=== PATIENT | female | born 1945 | race Caucasian/White ===

== ENCOUNTER → 2016-07-30 | Outpatient (CLI) | payer MEDICARE ==
[2016-07-30 11:14] LABS: ALBUMIN 3.4 GM/DL (3.2-5.2); ALKALINE PHOSPHATASE 78 U/L (45-117); ALT/SGPT 29 U/L (12-78); ANION GAP 10 MEQ/L (8-16); AST/SGOT 26 U/L (15-37); BILIRUBIN,TOTAL 0.4 MG/DL (0.2-1.0); BLOOD UREA NITROGEN 19 MG/DL (7-18); CALCIUM LEVEL 8.8 MG/DL (8.8-10.2); CARBON DIOXIDE LEVEL 28 MEQ/L (21-32); CHLORIDE LEVEL 106 MEQ/L (98-107); CHOLESTEROL LEVEL 132 MG/DL (<200); CREATININE FOR GFR 0.86 MG/DL (0.55-1.02); FREE T4 0.79 NG/DL (0.76-1.46); GLOMERULAR FILTRATION RATE > 60.0 (>39); GLUCOSE, FASTING 94 MG/DL (83-110); POTASSIUM SERUM 4.2 MEQ/L (3.5-5.1); SODIUM LEVEL 144 MEQ/L (136-145); TOTAL PROTEIN 6.5 GM/DL (6.4-8.2); TRIGLYCERIDES LEVEL 71 MG/DL (<150)
== END ==
LOC: M LAB 09:38
PROVIDERS: ATTEND Family Medicine
DX: E04.2 Nontoxic multinodular goiter (principal); I10 Essential (primary) hypertension

== ENCOUNTER → 2016-09-29 | Outpatient (CLI) | payer MEDICARE ==
--- NOTE | 2016-09-28 07:52 | ED PDOC ---
Provider Note [facility] Name: Brandei Bahena : 1945 Sex: F Age: 71 yrs Nurse Note: HERE TODAY TO SCHEDULE A COLONOSCOPY. PATIENT STATES LAST ONE WAS 11 YEARS AGO AND THERE WAS 1 POLYP THAT WAS BENIGN. PATIENT STATES SHE GETS CONSTIPATED ALOT BUT IT IS RELIEVED BY OTC STOOL SOFTENERS LIKE DOCUSATE. PATIENT STATES A MATERNAL UNCLE AND MATERNAL AUNT HAD COLON CANCER AGE UNKNOWN. 2 MATERNAL UNCLES HAD PANCREATIC CANCER AND LUNG CANCER . Does the patient currently smoke? . (Smoking Hx) Patient was referred by Wilberto Sheppard M.D.. Subjective CC: Patient presents for colon cancer screening. HPI: Colorectal cancer screening, but denies appetite change, weight loss, colitis, colon cancer, colon polyps, constipation, diarrhea, diverticulitis, diverticulosis, family history of colon cancer, hemorrhoids and rectal bleeding. AllPatient presents for consult regarding to discuss colonoscopy. She had a previous colonoscopy about 11 years ago for complaints of pressure symptoms with bowel movements. She was found to have a polyp than that was removed. I could not find the pathology results in the EMR. She reports no abdominal complaints. She has intermittent constipation. Denies any bleeding with bowel movements. She has a maternal aunt and uncle who were diagnosed with colon cancer. Current Meds Prior to Visit: Lisinopril 1 once a day, Sertraline HCL 1 by mouth every day, Atorvastatin Calcium 1 by mouth every day, Aspirin 1 by mouth every day Allergies: Iodine - Blotches, Bandaids - Red Itch, Latex - Itching PMH: Problem List: Essential hypertension Medical Problems: Hypertension High Cholesterol Anxiety Depression Thyroid Disease Heart Disease Chronic Obstructive Pulmonary Disease (COPD) Surgical Hx: Removal of Gallbladder, Cyst Removed From Ovary Colonoscopy - 2005 Anesthesia Complications: None Reviewed and updated. FH: Father: due to COPD. Mother: due to Hypertension; Stroke; Heart Disease. Brother 1: Hypertension, Heart Disease. Sister 1: Hypertension, Heart Disease. Reviewed and updated. SH: Personal Habits: Smoking: Patient is a former smoker - 2 PPD FOR 36 YEARS QUIT 1997.Alcohol: Denies alcohol use.Drug Use: Denies Drug Use. Reviewed and updated. ROS: Const: Denies chills, fatigue, fever, weight gain and weight loss. Eyes: Denies blurred vision and double vision. ENMT: Denies ear symptoms. Denies hoarseness. CV: Denies chest pain and palpitations. Resp: Denies chronic cough, dyspnea and wheezing. GI: Denies rectal bleeding, family history of colon cancer, constipation, diarrhea, dysphagia, heartburn and jaundice. : Denies dysuria, frequency, hematuria and nocturia. Musculo: Denies arthralgias, back pain and thrombophlebitis. Skin: Denies rash. Neuro: Denies headache, stroke and transient ischemic attack. Psych: Denies anxiety and depression. Endocrine: Denies thyroid disease. 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 Allergy/Immuno: Denies radiocontrast media reaction and rubber allergy. Reviewed and updated. Objective BP: 178/92 Ht: 61" 5'1" Wt: 167lb 6oz Wt [id number] BMI: 31.6 IBW: 105 Exam: Const: No signs of acute distress present. Head/Face: Normocephalic. No lesions present on inspection. Eyes: Conjunctivae pink and moist. No icterus of the sclerae bilaterally. ENMT: External nose exhibits no lesions. Lips: No lesions. Resp: Respiration rate is normal. No use of accessory muscles noted. Diaphragmatic excursion is normal. No wheezing or stridor. Chest expansion is symmetrical. Clear to auscultation bilaterally. Chest is normal to inspection and palpation. CV: Rate is regular. Rhythm is regular. No ectopic beats. Extremities: Peripheral circulation is normal with no evidence of clubbing or cyanosis. No edema of the lower limbs bilaterally. No varicosities noted. Abdomen: No bulging. The abdomen is nondistended, moderately obese and moderately rounded. Umbilicus is normal. No visible herniations. Skin is normal. Wounds are well-healed. Abdominal incision: located at the right subcostal incision. Positive bowel sounds in all quadrants. No bruits. Normal to percussion. Abdomen is soft, nontender, and nondistended without guarding, rigidity or rebound tenderness. No abdominal masses palpable. No palpable hernias. Perineum/Anus/Rectum: Exam deferred until colonoscopy. Skin: Skin warm and dry with no evidence of unusual rashes or suspicious lesions. Hair appears normal. Neuro: Oriented to person, place, situation and time. Data Review: 08/03/16 - Ref Shannon Sheppard Assessment #1: Hx Z12.11 Encounter for screening for malignant neoplasm of colon Care Plan: Comments : 1. Discussed with patient the rationale for colon cancer screening as well as the different options for screening. Patient is average risk for colon cancer which is a risk up to 7% lifetime of developing colonic malignancy. Discussed risk factors for colon cancer 2. Discussed bowel prep. 3.Discussed risks and benefits of colonoscopy including risks of bleeding and perforation. Patient's questions and concerns addressed at this point. Patient has agreed to proceed. CRISTINO SPENCE MD September 28, 2016 07:52
[~2016-09-29] VITALS: Ht 154.9 cm; Wt 73.5 kg
[~2016-09-29] MED LIST: ASPI81TA21 PO; ATOR1TAB21 PO; LISI-538 PO; PROPOFOL 200 MG/20 ML VIAL As Ordered ONE; SERT50TA PO
[2016-09-29] MEDS: NS 1,000 ML IV SCH ×2 (07:07→07:08)
--- NOTE | 2016-09-29 07:52 | ROOR ---
Patient Name: Brandie Bahena Procedure Date: 09/29/2016 7:29 AM Date of : 1945 Age: 71 Room: [facility] Gender: Female Note Status: Finalized Procedure: Colonoscopy Indications: Screening for colorectal malignant neoplasm Providers: Mitchell Webb MD Referring MD: Wilberto Sheppard MD Requesting Provider: Medicines: Monitored Anesthesia Care Complications: No immediate complications. Procedure: Pre-Anesthesia Assessment: - Prior to the procedure, a History and Physical was performed, and patient medications and allergies were reviewed. The patient is competent. The risks and benefits of the procedure and the sedation options and risks were discussed with the patient. All questions were answered and informed consent was obtained. Patient identification and proposed procedure were verified by the physician, the nurse and the anesthesiologist in the endoscopy suite. Mental Status Examination: alert and oriented. Airway Examination: normal oropharyngeal airway and neck mobility. Respiratory Examination: clear to auscultation. CV Examination: normal. Prophylactic Antibiotics: The patient does not require prophylactic antibiotics. Prior Anticoagulants: The patient has taken aspirin, last dose was day of procedure. ASA Grade Assessment: II - A patient with mild systemic disease. After reviewing the risks and benefits, the patient was deemed in satisfactory condition to undergo the procedure. The anesthesia plan was to use monitored anesthesia care (MAC). Immediately prior to administration of medications, the patient was re-assessed for adequacy to receive sedatives. The heart rate, respiratory rate, oxygen saturations, blood pressure, adequacy of pulmonary ventilation, and response to care were monitored throughout the procedure. The physical status of the patient was re-assessed after the procedure. The Colonoscope was introduced through the anus and advanced to the cecum, identified by appendiceal orifice and ileocecal valve. The colonoscopy was performed without difficulty. The patient tolerated the procedure well. The quality of the bowel preparation was excellent. Findings: The perianal exam findings include non-thrombosed external hemorrhoids. The colon (entire examined portion) appeared normal. No additional abnormalities were found on retroflexion. Impression: - Non-thrombosed external hemorrhoids found on perianal exam. - The entire examined colon is normal. - No specimens collected. Recommendation: - Discharge patient to home (ambulatory). - Repeat colonoscopy in 10 years for screening purposes. Mitchell Webb MD Mitchell Webb MD 09/29/2016 7:52:20 AM This report has been signed electronically. Number of Addenda: 0 Note Initiated On: 09/29/2016 7:29 AM Estimated Blood Loss: Estimated blood loss: none.
[2016-09-29 08:10] VITALS: BP 130/64
== END | disposition home or self-care (01) ==
LOC: M OPP 06:39
PROVIDERS: ATTEND Surgery
DX: Z12.11 Encounter for screening for malignant neoplasm of colon (principal); K64.4 Residual hemorrhoidal skin tags; Z86.010 Personal history of colon polyps; I10 Essential (primary) hypertension; E78.5 Hyperlipidemia, unspecified; E04.1 Nontoxic single thyroid nodule; K44.9 Diaphragmatic hernia without obstruction or gangrene; R12 Heartburn; F41.9 Anxiety disorder, unspecified; F32.9 Major depressive disorder, single episode, unspecified; Z78.0 Asymptomatic menopausal state; J44.9 Chronic obstructive pulmonary disease, unspecified; I25.10 Atherosclerotic heart disease of native coronary artery without angina pectoris; R06.83 Snoring; R32 Unspecified urinary incontinence; Z87.891 Personal history of nicotine dependence; Z79.82 Long term (current) use of aspirin; Z79.899 Other long term (current) drug therapy; Z88.3 Allergy status to other anti-infective agents; Z91.048 Other nonmedicinal substance allergy status; Z91.040 Latex allergy status

== ENCOUNTER → 2018-08-17 | Outpatient (CLI) | payer MEDICARE ==
[~2018-08-17] MED LIST changes: -PROPOFOL 200 MG/20 ML VIAL As Ordered ONE; +SERT-141 PO; -SERT50TA PO
[2018-08-17 11:49] LABS: BASO # 0.1 10^3/uL (0.0-0.2); BASO % 1.3 % (0.0-1.0); EOS # 0.3 10^3/uL (0.0-0.50); EOS % 5.7 % (0.0-3.0); HEMATOCRIT 41.4 % (36.0-47.0); HEMOGLOBIN 13.7 g/dl (12.0-15.5); LYMPH # 1.8 10^3/uL (1.5-4.5); LYMPH % 33.7 % (24.0-44.0); MEAN CORPUSCULAR HEMOGLOBIN 31.6 pg (27.0-33.0); MEAN CORPUSCULAR HGB CONC 33.1 g/dl (32.0-36.5); MEAN CORPUSCULAR VOLUME 95.4 fl (80.0-96.0); MONO # 0.4 10^3/uL (0.0-0.8); MONO % 6.4 % (0.0-5.0); NEUTROPHILS # 2.9 10^3/uL (1.8-7.7); NEUTROPHILS % 52.7 % (36.0-66.0); PLATELET COUNT, AUTOMATED 256 10^3/uL (150-450); RED BLOOD COUNT 4.34 10^6/uL (4.00-5.40); WHITE BLOOD COUNT 5.4 10^3/uL (4.0-10.0)
[2018-08-17 12:27] LABS: ALBUMIN 3.6 GM/DL (3.2-5.2); ALT/SGPT 26 U/L (12-78); BILIRUBIN,TOTAL 0.4 MG/DL (0.2-1.0); BLOOD UREA NITROGEN 9 MG/DL (7-18); CALCIUM LEVEL 8.2 MG/DL (8.8-10.2); CARBON DIOXIDE LEVEL 31 MEQ/L (21-32); CHLORIDE LEVEL 110 MEQ/L (98-107); CHOLESTEROL LEVEL 149 MG/DL (<200); CHOLESTEROL RISK RATIO 2.292 (<5); CREATININE FOR GFR 0.83 MG/DL (0.55-1.30); FREE T3 2.6 PG/ML (2.2-4.0); FREE T4 0.83 NG/DL (0.76-1.46); GLOMERULAR FILTRATION RATE > 60.0 (>39); GLUCOSE, FASTING 88 MG/DL (70-100); HDL CHOLESTEROL 65 MG/DL (>40); LDL CHOLESTEROL 66 MG/DL (<100); NON-HDL-C 84 MG/DL; POTASSIUM SERUM 4.3 MEQ/L (3.5-5.1); SODIUM LEVEL 143 MEQ/L (136-145); TOTAL PROTEIN 6.4 GM/DL (6.4-8.2); TRIGLYCERIDES LEVEL 89 MG/DL (<150)
[2018-08-17 12:30] LABS: TOTAL 25(OH) VITAMIN D 16.7 NG/ML (30.0-100.0)
== END ==
LOC: M LAB 10:54
PROVIDERS: ATTEND Family Medicine
DX: E04.2 Nontoxic multinodular goiter (principal); I10 Essential (primary) hypertension; Z79.899 Other long term (current) drug therapy

== ENCOUNTER → 2019-03-14 | Outpatient (CLI) | payer MEDICARE ==
[2019-03-14 12:30] LABS: HEMATOCRIT 42.8 % (36.0-47.0); HEMOGLOBIN 13.8 g/dl (12.0-15.5); MEAN CORPUSCULAR HEMOGLOBIN 31.9 pg (27.0-33.0); MEAN CORPUSCULAR HGB CONC 32.2 g/dl (32.0-36.5); MEAN CORPUSCULAR VOLUME 99.1 fl (80.0-96.0); PLATELET COUNT, AUTOMATED 279 10^3/uL (150-450); RED BLOOD COUNT 4.32 10^6/uL (4.00-5.40); WHITE BLOOD COUNT 4.9 10^3/uL (4.0-10.0)
[2019-03-14 13:06] LABS: ALBUMIN 3.6 GM/DL (3.2-5.2); ALT/SGPT 28 U/L (12-78); BILIRUBIN,TOTAL 0.6 MG/DL (0.2-1.0); BLOOD UREA NITROGEN 16 MG/DL (7-18); CALCIUM LEVEL 8.9 MG/DL (8.8-10.2); CARBON DIOXIDE LEVEL 30 MEQ/L (21-32); CHLORIDE LEVEL 108 MEQ/L (98-107); CHOLESTEROL LEVEL 153 MG/DL (<200); CHOLESTEROL RISK RATIO 1.987 (<5); CREATININE FOR GFR 0.89 MG/DL (0.55-1.30); GLOMERULAR FILTRATION RATE > 60.0 (>39); GLUCOSE, FASTING 82 MG/DL (70-100); HDL CHOLESTEROL 77 MG/DL (>40); LDL CHOLESTEROL 61 MG/DL (<100); NON-HDL-C 76 MG/DL; POTASSIUM SERUM 4.3 MEQ/L (3.5-5.1); SODIUM LEVEL 143 MEQ/L (136-145); TOTAL PROTEIN 6.6 GM/DL (6.4-8.2); TRIGLYCERIDES LEVEL 77 MG/DL (<150)
[2019-03-14 13:29] LABS: TOTAL 25(OH) VITAMIN D 38.8 NG/ML (30.0-100.0)
== END ==
LOC: M LAB 10:53
PROVIDERS: ATTEND Family Medicine
DX: E55.9 Vitamin D deficiency, unspecified (principal); E78.00 Pure hypercholesterolemia, unspecified

== ENCOUNTER → 2019-06-02 | Outpatient (CLI) | payer MEDICARE ==
[2019-06-02 13:02] LABS: FREE T3 2.5 PG/ML (2.2-4.0); FREE T4 0.88 NG/DL (0.76-1.46); THYROID STIMULATING HORMONE 1.79 uIU/ML (0.358-3.740)
== END ==
LOC: M LAB 12:10
PROVIDERS: ATTEND Family Medicine
DX: E04.1 Nontoxic single thyroid nodule (principal)

== ENCOUNTER → 2020-04-29 | Outpatient (REF) | payer MEDICARE | LOC: M LAB REF 16:07 | PROVIDERS: ATTEND Surgery | DX: L72.0 Epidermal cyst (principal) ==

== ENCOUNTER → 2020-10-16 | Outpatient (REF) | payer MEDICARE ==
[~2020-10-16] MED LIST changes: -LISI-538 PO; +LISI20TA33 PO
[2020-10-16 15:59] LABS: HEMATOCRIT 41.4 % (36.0-47.0); HEMOGLOBIN 13.4 g/dl (12.0-15.5); MEAN CORPUSCULAR HEMOGLOBIN 31.6 pg (27.0-33.0); MEAN CORPUSCULAR HGB CONC 32.4 g/dl (32.0-36.5); MEAN CORPUSCULAR VOLUME 97.6 fl (80.0-96.0); PLATELET COUNT, AUTOMATED 287 10^3/uL (150-450); RED BLOOD COUNT 4.24 10^6/uL (4.00-5.40); WHITE BLOOD COUNT 5.8 10^3/uL (4.0-10.0)
[2020-10-16 16:16] LABS: ALBUMIN 3.8 GM/DL (3.2-5.2); ALT/SGPT 33 U/L (12-78); BILIRUBIN,TOTAL 0.5 MG/DL (0.2-1.0); BLOOD UREA NITROGEN 14 MG/DL (7-18); CALCIUM LEVEL 8.6 MG/DL (8.8-10.2); CARBON DIOXIDE LEVEL 30 MEQ/L (21-32); CHLORIDE LEVEL 109 MEQ/L (98-107); CHOLESTEROL LEVEL 135 MG/DL (<200); CHOLESTEROL RISK RATIO 2.213 (<5); CREATININE FOR GFR 0.82 MG/DL (0.55-1.30); FREE T3 2.5 PG/ML (2.2-4.0); FREE T4 0.89 NG/DL (0.76-1.46); GLOMERULAR FILTRATION RATE > 60.0 (>39); GLUCOSE, FASTING 86 MG/DL (70-100); HDL CHOLESTEROL 61 MG/DL (>40); LDL CHOLESTEROL 56 MG/DL (<100); NON-HDL-C 74 MG/DL; POTASSIUM SERUM 4.6 MEQ/L (3.5-5.1); SODIUM LEVEL 142 MEQ/L (136-145); TOTAL PROTEIN 6.6 GM/DL (6.4-8.2); TRIGLYCERIDES LEVEL 89 MG/DL (<150)
[2020-10-16 16:18] LABS: TOTAL 25(OH) VITAMIN D 34.8 NG/ML (30.0-100.0)
== END ==
LOC: M PLALAB 14:52
PROVIDERS: ATTEND Family Medicine
DX: E04.2 Nontoxic multinodular goiter (principal); I10 Essential (primary) hypertension

== ENCOUNTER → 2021-01-21 | Outpatient (CLI) | payer MEDICARE ==
--- NOTE | 2021-01-21 13:40 | PFTRPT ---
Site: [facility], [address] [place], [address] ID: [id number] Name: JEAN CLAUDE BLACKWELL Visit Date: 01/21/2021 Second ID: [id number] Referring Doctor: MD Sheppard Jon Reviewing Doctor: Didier Snyder MD Registered Dental Assistant: Yuliya Agosto RRT Age: 75 : 1945 Sex: Female Race: Height: 61.00 Inches Weight: 166.00 Lbs BSA: 1.75 Order IDs: [id number] Requested Test(s): <RESP-PFT.PFT B/A> Diagnosis: R06.02 of albuterol for post bronchodilator. Review Status: Not Reviewed Pre-Bronch Post-Bronch Pred Actual %Pred Actual %Chng SPIROMETRY FVC (L) 2.43 1.61 66 1.61 FEV1 (L) 1.81 1.40 77 1.29 -8 FEV1/FVC (%) 75 87 115 80 -7 FEF 25% (L/sec) 4.29 3.05 71 4.67 53 FEF 50% (L/sec) 3.18 3.04 95 2.32 -23 FEF 75% (L/sec) 0.85 0.79 92 0.32 -59 FEF 25-75% (L/sec) 1.46 2.04 139 1.20 -41 FEF Max (L/sec) 4.74 4.62 97 4.89 5 FIVC (L) 1.77 1.90 7 FIF 50% (L/sec) 3.14 3.05 97 4.24 38 FIF Max (L/sec) 3.15 4.24 34 MVV (L/min) 76 82 107 Expiratory Time (sec) 7.30 7.00 -4 Back Extrap Vol (L) 0.12 0.09 -22 Time To FEFmax (sec) 0.175 0.091 -48 LUNG VOLUMES SVC (L) 2.45 2.97 121 IC (L) 1.97 1.78 90 ERV (L) 0.48 0.90 187 TGV (L) 2.63 2.92 111 RV (Pleth) (L) 2.15 1.74 80 TLC (Pleth) (L) 4.60 4.70 102 RV/TLC (Pleth) (%) 46 37 80 DIFFUSION DLCOunc (ml/min/mmHg) 18.67 13.92 74 DL/VA (ml/min/mmHg/L) 4.06 5.34 131 VA (L) 4.60 2.61 56 BHT (sec) 10.35 IVC (L) 1.25 TLC (SB) (L) 2.76 AIRWAYS RESISTANCE Raw (cmH2O/L/s) 1.86 1.94 104 Gaw (L/s/cmH2O) 1.03 0.52 50 sRaw (cmH2O*s) 4.76 5.70 119 sGaw (1/cmH2O*s) 0.20 0.18 90
== END ==
LOC: M CARPUL 12:50
PROVIDERS: ATTEND Family Medicine
DX: R06.02 Shortness of breath (principal)

== ENCOUNTER → 2021-12-08 | Outpatient (CLI) | payer MEDICARE ==
[2021-12-08 15:29] LABS: HEMATOCRIT 44.2 % (36.0-47.0); HEMOGLOBIN 14.2 g/dl (12.0-15.5); MEAN CORPUSCULAR HEMOGLOBIN 31.6 pg (27.0-33.0); MEAN CORPUSCULAR HGB CONC 32.1 g/dl (32.0-36.5); MEAN CORPUSCULAR VOLUME 98.2 fl (80.0-96.0); PLATELET COUNT, AUTOMATED 296 10^3/uL (150-450); WHITE BLOOD COUNT 8.7 10^3/uL (4.0-10.0)
[2021-12-08 15:52] LABS: ALBUMIN 3.7 GM/DL (3.2-5.2); ALT/SGPT 40 U/L (12-78); BILIRUBIN,TOTAL 0.6 MG/DL (0.2-1.0); BLOOD UREA NITROGEN 16 MG/DL (7-18); CARBON DIOXIDE LEVEL 28 MEQ/L (21-32); CHLORIDE LEVEL 110 MEQ/L (98-107); CHOLESTEROL LEVEL 145 MG/DL (<200); CHOLESTEROL RISK RATIO 2.132 (<5); CREATININE FOR GFR 0.87 MG/DL (0.55-1.30); GLOMERULAR FILTRATION RATE > 60.0 (>39); GLUCOSE, FASTING 102 MG/DL (70-100); HDL CHOLESTEROL 68 MG/DL (>40); LDL CHOLESTEROL 58 MG/DL (<100); NON-HDL-C 77 MG/DL; POTASSIUM SERUM 4.4 MEQ/L (3.5-5.1); SODIUM LEVEL 144 MEQ/L (136-145); TOTAL PROTEIN 6.6 GM/DL (6.4-8.2); TRIGLYCERIDES LEVEL 95 MG/DL (<150)
[2021-12-08 16:29] LABS: TOTAL 25(OH) VITAMIN D 38.3 NG/ML (30.0-100.0)
== END ==
LOC: M PLALAB 12:45
PROVIDERS: ATTEND Family Medicine
DX: E55.9 Vitamin D deficiency, unspecified (principal); E07.9 Disorder of thyroid, unspecified; E78.00 Pure hypercholesterolemia, unspecified

== ENCOUNTER → 2021-12-28 | Outpatient (CLI) | payer MEDICARE ==
[~2021-12-28] MED LIST changes: +ECOT81TA5 PO; +EQL50TAB2 PO; +LOSA50TA28 PO; +NOXI1TAB PO
== END ==
LOC: M LABSMTC 11:28
PROVIDERS: ATTEND Anesthesiology
DX: Z01.818 Encounter for other preprocedural examination (principal); Z11.52 Encounter for screening for COVID-19

== ENCOUNTER 2021-12-30 10:55 | Day surgery (SDC) | payer MEDICARE ==
[~2021-12-30] VITALS: Ht 154.9 cm; Wt 75.7 kg
[~2021-12-30 10:55] MED LIST changes: +BSS IRRIG/VANCO(10MG)/TOBRA(5MG)/EPINEPH(1:1000-0.5CC)500ML BAG-ORONLY IR ONE; +CEFUROXIME 1MG/0.1ML INTRACAMERAL INJ As Ordered ONE; +LIDOCAINE 1% SDV 5ML VIAL As Ordered ONE; +LIDOCAINE 3.5 % 1ML OPHTH TOPICAL GEL OU ONE; +OFLOXACIN 0.3 % (OCUFLOX) OPTH SOL 5ML OD ONE; +PHENYLEPHRINE HCL 10 % OPHTH. SOL 5ML OD PRN
[2021-12-30] MEDS ORDERED: fentaNYL 100 MCG/2 ML INJECTION As Ordered ONE (11:29)
[2021-12-30] MEDS ORDERED: MIDAZOLAM INJ 2MG/2ML VIAL (J2250 PER 1MG) As Ordered ONE (11:29)
[2021-12-30] MEDS: TROPICAMIDE 1% OPHTH SOLN 2ML OD SCH ×3 (11:31→11:44)
[2021-12-30] MEDS: PHENYLEPHRINE 2.5% OPHTH SOL 2ML OD SCH ×3 (11:34→11:50)
[2021-12-30] MEDS: CYCLOPENTOLATE 1% OPHTH SOLN 2 ML BTL OD SCH ×3 (11:34→11:50)
[2021-12-30] MEDS ORDERED: ONDANSETRON 4MG TAB PO PRN (13:35)
[2021-12-30] MEDS ORDERED: ACETAMINOPHEN 325 MG TAB PO PRN (13:35)
[2021-12-30] MEDS ORDERED: acetaZOLAMIDE 500MG ER CAP PO SCH (13:40)
[2021-12-30 13:55] VITALS: BP 191/77
== END 2021-12-30 13:55 | disposition home or self-care (01) ==
LOC: M SDC 10:55
PROVIDERS: ATTEND Ophthalmology
DX: H25.11 Age-related nuclear cataract, right eye (principal); I10 Essential (primary) hypertension; E78.5 Hyperlipidemia, unspecified; E04.1 Nontoxic single thyroid nodule; J45.909 Unspecified asthma, uncomplicated; Z87.891 Personal history of nicotine dependence; K44.9 Diaphragmatic hernia without obstruction or gangrene; K21.9 Gastro-esophageal reflux disease without esophagitis; F41.9 Anxiety disorder, unspecified; F32.A Depression, unspecified; Z79.899 Other long term (current) drug therapy; Z91.041 Radiographic dye allergy status; Z91.040 Latex allergy status; Z91.013 Allergy to seafood
CPT/HCPCS: 66984; J0697; J2250; J3010; V2632

== ENCOUNTER → 2024-03-30 | Outpatient (CLI) | payer MEDICARE ==
[~2024-03-30] MED LIST changes: -BSS IRRIG/VANCO(10MG)/TOBRA(5MG)/EPINEPH(1:1000-0.5CC)500ML BAG-ORONLY IR ONE; -CEFUROXIME 1MG/0.1ML INTRACAMERAL INJ As Ordered ONE; -LIDOCAINE 1% SDV 5ML VIAL As Ordered ONE; -LIDOCAINE 3.5 % 1ML OPHTH TOPICAL GEL OU ONE; -OFLOXACIN 0.3 % (OCUFLOX) OPTH SOL 5ML OD ONE; -PHENYLEPHRINE HCL 10 % OPHTH. SOL 5ML OD PRN
[2024-03-30 15:00] LABS: BASO # 0.1 10^3/uL (0.0-0.2); BASO % 0.9 % (0.0-1.0); EOS # 0.2 10^3/uL (0.0-0.5); EOS % 3.2 % (0.0-3.0); HEMATOCRIT 40.5 % (36.0-47.0); HEMOGLOBIN 13.5 g/dl (12.0-15.5); LYMPH # 1.8 10^3/uL (1.5-5.0); LYMPH % 31.9 % (24.0-44.0); MEAN CORPUSCULAR HEMOGLOBIN 31.8 pg (27.0-33.0); MEAN CORPUSCULAR HGB CONC 33.3 g/dl (32.0-36.5); MEAN CORPUSCULAR VOLUME 95.5 fl (80.0-96.0); MONO # 0.4 10^3/uL (0.0-0.8); MONO % 7.7 % (2.0-8.0); NEUTROPHILS # 3.2 10^3/uL (1.5-8.5); NEUTROPHILS % 55.9 % (36.0-66.0); PLATELET COUNT, AUTOMATED 272 10^3/uL (150-450); RED BLOOD COUNT 4.24 10^6/uL (4.00-5.40); WHITE BLOOD COUNT 5.6 10^3/uL (4.0-10.0)
[2024-03-30 15:09] LABS: ALBUMIN 3.4 G/DL (3.2-5.2); ALKALINE PHOSPHATASE 91 U/L (35-104); ALT/SGPT 31 U/L (7.0-40); AST/SGOT 26 U/L (<34); BILIRUBIN,TOTAL 0.4 MG/DL (0.3-1.2); BLOOD UREA NITROGEN 14 MG/DL (9-23); CALCIUM LEVEL 9.3 MG/DL (8.3-10.6); CARBON DIOXIDE LEVEL 29 MMOL/L (20-31); CHLORIDE LEVEL 108 MMOL/L (98-107); CHOLESTEROL LEVEL 143 MG/DL (<200); CREATININE FOR GFR 0.94 MG/DL (0.55-1.30); GLOMERULAR FILTRATION RATE > 60.0 (>39); GLUCOSE, FASTING 95 MG/DL (74-106); LDL CHOLESTEROL 73.2 MG/DL (<100); POTASSIUM SERUM 3.8 MMOL/L (3.5-5.1); SODIUM LEVEL 145 MMOL/L (136-145); TOTAL PROTEIN 6.4 G/DL (5.7-8.2); TRIGLYCERIDES LEVEL 94 MG/DL (<150)
[2024-03-30 15:10] LABS: THYROID STIMULATING HORMONE 2.041 uIU/ML (0.55-4.78)
[2024-03-30 15:11] LABS: TOTAL 25(OH) VITAMIN D 41.2 NG/ML (20.0-100.0)
== END ==
LOC: M PLALAB 11:39
PROVIDERS: ATTEND Family Medicine
DX: E55.9 Vitamin D deficiency, unspecified (principal); E78.00 Pure hypercholesterolemia, unspecified

== ENCOUNTER 2024-06-14 16:39 | Emergency (ER) | payer MEDICAID, MEDICARE ==
[~2024-06-14] VITALS: Ht 154.9 cm; Wt 80.5 kg
[2024-06-14] MEDS: LABETALOL 100MG/20ML VIAL IV STA ×2 (19:22→23:51)
[2024-06-14 19:29] LABS: BASO % 0.7 % (0.0-1.0); EOS # 0.1 10^3/uL (0.0-0.5); EOS % 1.2 % (0.0-3.0); HEMATOCRIT 44.1 % (36.0-47.0); HEMOGLOBIN 15.2 g/dl (12.0-15.5); LYMPH # 1.7 10^3/uL (1.5-5.0); LYMPH % 28.4 % (24.0-44.0); MEAN CORPUSCULAR HEMOGLOBIN 32.8 pg (27.0-33.0); MEAN CORPUSCULAR HGB CONC 34.5 g/dl (32.0-36.5); MEAN CORPUSCULAR VOLUME 95.2 fl (80.0-96.0); MONO # 0.3 10^3/uL (0.0-0.8); MONO % 5.5 % (2.0-8.0); NEUTROPHILS # 3.9 10^3/uL (1.5-8.5); NEUTROPHILS % 63.9 % (36.0-66.0); PLATELET COUNT, AUTOMATED 270 10^3/uL (150-450); RED BLOOD COUNT 4.63 10^6/uL (4.00-5.40); WHITE BLOOD COUNT 6.1 10^3/uL (4.0-10.0)
[2024-06-14 19:42] LABS: INR 0.93; PARTIAL THROMBOPLASTIN TIME 28.7 SECONDS (24.8-34.2); PROTHROMBIN TIME 12.8 SECONDS (12.5-14.5)
[2024-06-14 20:11] LABS: CK-MB VALUE MASS < 1.0 NG/ML (<3.6)
[2024-06-14 20:13] LABS: ALKALINE PHOSPHATASE 98 U/L (35-104); ALT/SGPT 34 U/L (7.0-40); AST/SGOT 33 U/L (<34); BILIRUBIN,DIRECT 0.2 MG/DL (<0.4); BILIRUBIN,TOTAL 0.7 MG/DL (0.3-1.2); BLOOD UREA NITROGEN 8 MG/DL (9-23); CALCIUM LEVEL 8.8 MG/DL (8.3-10.6); CARBON DIOXIDE LEVEL 31 MMOL/L (20-31); CHLORIDE LEVEL 107 MMOL/L (98-107); CREATININE FOR GFR 0.79 MG/DL (0.55-1.30); GLOMERULAR FILTRATION RATE > 60.0 (>39); GLUCOSE, FASTING 92 MG/DL (74-106); POTASSIUM SERUM 4.3 MMOL/L (3.5-5.1); SODIUM LEVEL 146 MMOL/L (136-145)
[2024-06-14 20:15] LABS: FREE T4 1.08 NG/DL (0.89-1.76); THYROID STIMULATING HORMONE 1.612 uIU/ML (0.55-4.78)
[2024-06-14 20:21] LABS: CPK CREATINE PHOSPHOKINASE 164 U/L (34-145)
[2024-06-14 21:03] LABS: CK-MB VALUE MASS < 1.0 NG/ML (<3.6)
[2024-06-14 21:05] LABS: CPK CREATINE PHOSPHOKINASE 149 U/L (34-145); MB/CK RELATIVE INDEX 0.67 (< OR =4)
[2024-06-14] MEDS ORDERED: ACET-907 PO (22:25)
[2024-06-14] MEDS ORDERED: LOSA100T46 PO (22:25)
[2024-06-14] MEDS ORDERED: HOME MED LIST COMPLETE! XX SCH (22:25)
[2024-06-15 09:51] LABS: APPEARANCE, URINE HAZY (CLEAR); BACTERIA, URINE AUTO 1+ (NEGATIVE); BILIRUBIN, URINE AUTO NEGATIVE (NEGATIVE); BLOOD, URINE BLOOD NEGATIVE (NEGATIVE); COLOR, URINE YELLOW (YELLOW); GLUCOSE, URINE (UA) AUTO NEGATIVE (NEGATIVE); KETONE, URINE AUTO NEGATIVE (NEGATIVE); LEUKOCYTE ESTERASE, URINE AUTO 1+ (NEGATIVE); MUCUS, URINE SMALL (NEGATIVE); NITRITE, URINE AUTO NEGATIVE (NEGATIVE); PROTEIN, URINE AUTO NEGATIVE (NEGATIVE); RBC, URINE AUTO 1 /HPF (0-3); SPECIFIC GRAVITY URINE AUTO 1.011 (1.002-1.035); SQUAMOUS EPITHELIAL CELL UR AU 1 /HPF (0-6); WBC, URINE AUTO 4 /HPF (0-3)
[2024-06-15 10:30] VITALS: BP 121/60; TEMP 96.3; O2SAT 94
== END 2024-06-15 10:50 | disposition home or self-care (01) ==
LOC: M ED 16:39
DX: I16.0 Hypertensive urgency (principal); I10 Essential (primary) hypertension; K21.9 Gastro-esophageal reflux disease without esophagitis; J44.9 Chronic obstructive pulmonary disease, unspecified; Z88.1 Allergy status to other antibiotic agents; Z91.040 Latex allergy status; Z91.013 Allergy to seafood; Z79.1 Long term (current) use of non-steroidal anti-inflammatories (NSAID); Z79.899 Other long term (current) drug therapy
CPT/HCPCS: 36415; 71046; 80048; 80076; 81001; 82550; 82553; 84439; 84443; 84484; 85025; 85610; 85730; 93005; 93041; 94760; 96374; 96375; 99285; J1920

== ENCOUNTER 2024-07-22 14:38 | Emergency (ER) | payer MEDICARE ==
[~2024-07-22] VITALS: Ht 154.9 cm; Wt 79.1 kg
[~2024-07-22 14:38] MED LIST changes: +ACET-907 PO; +LOSA100T46 PO
[2024-07-22] MEDS: CETIRIZINE (ZyrTEC) 10 MG TAB PO ONE (18:20)
[2024-07-22] MEDS ORDERED: TRIA1CR80 TOP (18:21)
[2024-07-22 18:28] VITALS: BP 140/80; TEMP 95.2; O2SAT 94
== END 2024-07-22 18:29 | disposition home or self-care (01) ==
LOC: M ED 14:38
DX: L25.8 Unspecified contact dermatitis due to other agents (principal); Z88.1 Allergy status to other antibiotic agents; Z91.013 Allergy to seafood; Z91.040 Latex allergy status; Z79.1 Long term (current) use of non-steroidal anti-inflammatories (NSAID); Z79.899 Other long term (current) drug therapy

== ENCOUNTER → 2025-02-17 | Outpatient (CLI) | payer MEDICARE ==
[~2025-02-17] MED LIST changes: -EQL50TAB2 PO; +TRIA1CR80 TOP; +VITA1TAB82 PO
== END ==
LOC: M RAD 12:18
PROVIDERS: ATTEND Family Medicine
DX: M79.604 Pain in right leg (principal)

== ENCOUNTER → 2025-02-21 | Outpatient (CLI) | payer MEDICAID, MEDICARE ==
[2025-02-21 14:51] LABS: BASO # 0.1 10^3/uL (0.0-0.2); BASO % 1.1 % (0.0-1.0); EOS # 0.2 10^3/uL (0.0-0.5); EOS % 3.7 % (0.0-3.0); LYMPH # 2.2 10^3/uL (1.5-5.0); LYMPH % 35.3 % (24.0-44.0); MONO # 0.6 10^3/uL (0.0-0.8); MONO % 8.9 % (2.0-8.0); NEUTROPHILS # 3.2 10^3/uL (1.5-8.5); NEUTROPHILS % 50.8 % (36.0-66.0); PLATELET COUNT, AUTOMATED 284 10^3/uL (150-450)
[2025-02-21 15:14] LABS: CHOLESTEROL LEVEL 141.0 MG/DL (<200); CHOLESTEROL RISK RATIO 2.65 (<5); LDL CHOLESTEROL 64.6 MG/DL (<100); NON-HDL-C 87.8 MG/DL; TRIGLYCERIDES LEVEL 116.0 MG/DL (<150)
== END ==
LOC: M PLALAB 10:53
PROVIDERS: ATTEND Family Medicine
DX: E04.2 Nontoxic multinodular goiter (principal); I10 Essential (primary) hypertension

== ENCOUNTER → 2025-02-22 | Outpatient (CLI) | payer MEDICAID, MEDICARE ==
[2025-02-22 17:54] LABS: ALT/SGPT 26.0 U/L (7.0-40); AST/SGOT 34.0 U/L (<34); CALCIUM LEVEL 8.7 MG/DL (8.3-10.6); CARBON DIOXIDE LEVEL 32.0 MMOL/L (20-31); CHLORIDE LEVEL 102.0 MMOL/L (98-107); CREATININE FOR GFR 1.0 MG/DL (0.55-1.30); GLOMERULAR FILTRATION RATE 57.3 (>39); POTASSIUM SERUM 3.6 MMOL/L (3.5-5.1); SODIUM LEVEL 145.0 MMOL/L (136-145)
[2025-02-22 17:57] LABS: TOTAL 25(OH) VITAMIN D 32.1 NG/ML (20.0-100.0)
== END ==
LOC: M PLAIMG 15:12
PROVIDERS: ATTEND Family Medicine
DX: M79.604 Pain in right leg (principal); E78.5 Hyperlipidemia, unspecified; E55.9 Vitamin D deficiency, unspecified